=== PATIENT | female | born 1960 | race Caucasian/White ===

== ENCOUNTER 2023-05-08 13:33 | Emergency (ER) | payer MEDICAID ==
[~2023-05-08] VITALS: Ht 165.1 cm; Wt 84.2 kg
[2023-05-08] MEDS ORDERED: LIDOcaine 1% 30ml preserv. free vial IJ ONE (15:00)
[2023-05-08] MEDS ORDERED: HYDROcodone/acetaminophen 10/325mg tab PO ONE (15:00)
[2023-05-08] MEDS ORDERED: TETanus/Pertussis (Acell)/Diphther VAC/PF (Tdap-Adult) 0.5ml syringe IMVAC ONE (15:00)
[2023-05-08] MEDS ORDERED: TRAM50TA2 PO ×2 (17:20→18:45)
[2023-05-08] MEDS ORDERED: SULF1TAB49 PO ×2 (17:20→18:45)
[2023-05-08] MEDS ORDERED: CEPH500C2 PO (17:20)
[2023-05-08 17:30] VITALS: BP 138/76; PULSE 88; RESP 16; TEMP 97.8; O2SAT 98
[2023-05-08] MEDS ORDERED: CEPH500C81 PO (18:45)
== END 2023-05-08 17:33 | disposition home or self-care (01) ==
LOC: ER 13:34
DX: L08.89 Other specified local infections of the skin and subcutaneous tissue (principal)
CPT/HCPCS: 10160; 87070; 87077; 87186; 90471; 90715; 99283; 99284

== ENCOUNTER → 2024-09-01 | Emergency (ER) | payer MEDICAID ==
[~2024-09-01] VITALS: Ht 165.1 cm; Wt 75.9 kg
[~2024-09-01] MED LIST: PRED20TA PO
[2024-09-01 06:24] VITALS: TEMP 98
[2024-09-01 07:13] LABS: BASOPHILS % (AUTO) 0.2 % (0-1); EOSINOPHILS # (AUTO) 0.5 X10'3 (0-0.9); EOSINOPHILS % (AUTO) 5.8 % (0-6); HEMATOCRIT 40.3 % (35.0-45.0); HEMOGLOBIN 13.7 g/dl (12.0-16.0); LYMPHOCYTES # (AUTO) 2.4 X10'3 (1.1-4.8); LYMPHOCYTES % (AUTO) 27.8 % (21-51); MEAN CORPUSCULAR HEMOGLOBIN 29.9 PG (27.0-31.0); MEAN CORPUSCULAR HGB CONC 34.1 g/dL (33.0-36.5); MEAN CORPUSCULAR VOLUME 87.9 FL (78-98); MEAN PLATELET VOLUME 8.6 FL (7.4-10.4); MONOCYTES # (AUTO) 0.6 X10'3 (0-0.9); NEUTROPHILS # (AUTO) 5.1 X10'3 (1.8-7.7); NEUTROPHILS % (AUTO) 59.2 % (42-75); PLATELET COUNT 215 X10'3 (140-440); RED BLOOD COUNT 4.58 X10'6 (4.20-5.60); RED CELL DISTRIBUTION WIDTH 14.7 % (11.5-14.5); WHITE BLOOD COUNT 8.7 X10'3 (4.5-11.0)
[2024-09-01 07:27] LABS: ALANINE AMINOTRANSFERASE 18 U/L (12-78); ALBUMIN 3.8 G/DL (3.4-5.0); ALBUMIN/GLOBULIN RATIO 0.9 (1.1-1.5); ALKALINE PHOSPHATASE 73 IU/L (46-116); ANION GAP 8 (8-16); APTT 28 SECONDS (22-32); ASPARTATE AMINO TRANSFERASE 17 U/L (10-37); BILIRUBIN,TOTAL 0.4 MG/DL (0.1-1.0); BLOOD UREA NITROGEN 24 MG/DL (7-18); BUN/CREATININE RATIO 24.5 (10.0-20.0); CALCIUM 8.9 MG/DL (8.5-10.1); CHLORIDE 104 MMOL/L (99-107); CREATININE 0.98 MG/DL (0.40-0.90); GLUCOSE 101 MG/DL (70-104); MAGNESIUM 1.9 MG/DL (1.5-2.4); POTASSIUM 3.7 MMOL/L (3.5-5.1); PROTHROMBIN TIME 10.5 SECONDS (9.0-12.0); SODIUM 139 MMOL/L (135-145); TOTAL CARBON DIOXIDE 27.5 MMOL/L (24-32); TOTAL PROTEIN 8.2 G/DL (6.4-8.2); eCRCL 54 ML/MIN; eGFR 58 ML/MIN
[2024-09-01] MEDS: ketorolac trometh 15mg/ml vial 15 MG/ML ML IV ONE (09:01)
[2024-09-01 09:16] VITALS: BP 104/66; PULSE 99; RESP 16; O2SAT 98
== END | disposition home or self-care (01) ==
LOC: ER 06:22
DX: G51.0 Bell's palsy (principal); G89.29 Other chronic pain; M54.9 Dorsalgia, unspecified; I49.9 Cardiac arrhythmia, unspecified; Z88.6 Allergy status to analgesic agent
CPT/HCPCS: 36415; 70450; 70551; 71045; 80053; 82948; 83735; 84145; 85025; 85610; 85730; 93005; 99285; J1885